=== PATIENT | male | born 1975 | race Caucasian/White ===

== ENCOUNTER 2017-02-22 16:23 | Emergency (ER) | payer MEDICARE ==
[2017-02-22 17:59] LABS: HEMOGLOBIN 15.5 gm/dl (14.0-17.5); RED BLOOD COUNT 5.15 M/UL (4.20-5.50); WHITE BLOOD COUNT 7.2 K/UL (4.5-11.0)
[2017-02-22 18:20] LABS: BUN/CREATININE RATIO 14 (0-10)
== END 2017-02-23 02:35 | disposition home or self-care (01) ==
LOC: ER1 16:23
PROVIDERS: Emergency Medicine
DX: R45.851 Suicidal ideations (principal); F11.10 Opioid abuse, uncomplicated
CPT/HCPCS: 36415; 80053; 80307; 81001; 83690; 85025; 87086; 93005; 99285; G0480; J7030

== ENCOUNTER 2022-05-31 19:12 | Emergency (ER) | payer OTHER ==
[2022-05-31 20:19] LABS: HEMOGLOBIN 14.3 gm/dl (14.0-17.5); RED BLOOD COUNT 4.66 M/UL (4.20-5.50); WHITE BLOOD COUNT 8.3 K/UL (4.5-11.0)
[2022-05-31 20:34] LABS: BUN/CREATININE RATIO 21 (0-10)
[2022-05-31] MEDS ORDERED: MELOXICAM7.5 MG PO (23:36)
== END 2022-05-31 23:45 | disposition home or self-care (01) ==
LOC: ER1 19:12
PROVIDERS: Physician Assistant
DX: G56.01 Carpal tunnel syndrome, right upper limb (principal); F17.210 Nicotine dependence, cigarettes, uncomplicated
CPT/HCPCS: 73110; 73130; 80053; 85025; 85652; 86140; 96372; 99283; J1885; J2270